=== PATIENT | female | born 1955 | race Caucasian/White ===

== ENCOUNTER → 2017-11-20 | Outpatient (CLI) | payer OTHER ==
--- NOTE | 2017-11-20 15:05 | US ---
LOWER EXTREMITY VENOUS INSUFFICIENCY SIDE PERFORMED: Right 1) Color flow is present and patency is documented in the following vessels. No DVT or SVT is noted . EIV Common Femoral Vein Deep Femoral Vein Femoral Vein Popliteal Vein Proximal Calf Veins Greater Saph Vein Upper Small Saph Vein 2) There is venous reflux noted at the following venous levels: none IMPRESSION: No evidence for venous reflux or DVT.
--- NOTE | 2017-11-25 10:31 | P.ARTDOP ---
Arterial Doppler LOWER EXTREMITY ARTERIAL DOPPLER: DATE OF SERVICE: 11/20/2017 Reason for study: Right foot ulcer. Doppler waveforms: Multiphasic bilaterally throughout. Pulse volume recording: Normal configuration. Pressure gradients: None. Ankle-brachial indices: Greater than 1 bilaterally. Toe pressures: 82on the right, 93 on the left Impression: Normal study.
== END | disposition home or self-care (01) ==
LOC: RADUSWWP 13:38
PROVIDERS: ATTEND Podiatrist
DX: M79.604 Pain in right leg (principal); M79.605 Pain in left leg; M86.8X8 Other osteomyelitis, other site
CPT/HCPCS: 93923

== ENCOUNTER → 2018-01-08 | Outpatient (CLI) | payer OTHER ==
--- NOTE | 2018-01-14 11:19 | MM ---
Reason for exam: screening (asymptomatic). Last mammogram was performed 7 years and 1 month ago. History: Patient is postmenopausal. Physical Findings: A clinical breast exam by your physician is recommended on an annual basis and results should be correlated with mammographic findings. MG Screening Mammo w CAD Bilateral CC and MLO view(s) were taken. Prior study comparison: December 13, 2010, mammogram, performed at [place]. The breast tissue is heterogeneously dense. This may lower the sensitivity of mammography. Previous mammotome biopsy in the right breast. Focal asymmetry left outer anterior aspect on CC view. ASSESSMENT: Incomplete: need additional imaging evaluation, BI-RAD 0 RECOMMENDATION: Special view mammogram of the left breast. If lesion persists on supplemental views, image directed ultrasound is recommended. [facility] will attempt to contact patient to return for supplemental views and ultrasound if indicated.
== END | disposition home or self-care (01) ==
LOC: RADMAMWWP 11:25
PROVIDERS: ATTEND Family Medicine
DX: Z12.31 Encounter for screening mammogram for malignant neoplasm of breast (principal)
CPT/HCPCS: 77067

== ENCOUNTER → 2018-02-16 | Outpatient (CLI) | payer OTHER ==
--- NOTE | 2018-02-16 11:02 | MM ---
Reason for exam: additional evaluation requested from abnormal screening. Last mammogram was performed 1 month ago. History: Patient is postmenopausal. Took estrogen for 2 years beginning at age 42. Physical Findings: Nurse did not find any significant physical abnormalities on exam. MG Work Up Mamm w CAD LT CC and MLO view(s) were taken of the left breast. Technologist: Binta Bernabe RT (R)(M) Prior study comparison: January 08, 2018, bilateral MG screening mammo w CAD. December 13, 2010, mammogram, performed at [place]. There are scattered fibroglandular densities. 9mm ovoid partially circumscribed, partially obscured focal asymmetry persists 2 o'clock left breast middle depth. These results were verbally communicated with the patient and result sheet given to the patient on 02/16/18. ASSESSMENT: Incomplete: need additional imaging evaluation, BI-RAD 0 RECOMMENDATION: Ultrasound of the left breast. (2 o'clock)
--- NOTE | 2018-02-16 11:04 | USB ---
Reason for exam: additional evaluation requested from abnormal screening. History: Patient is postmenopausal. Took estrogen for 2 years beginning at age 42. US Breast Workup Limited LT Left limited breast ultrasound including focal area of concern, retroareolar and axilla demonstrates a 7 x 3 x 6mm oval, cystic lesion at 2 o'clock, this likely corresponds to the mammographic finding. These results were verbally communicated with the patient and result sheet given to the patient on 02/16/18. ASSESSMENT: Probably benign, BI-RAD 3 RECOMMENDATION: Follow-up diagnostic mammogram of the left breast in 6 months.
== END | disposition home or self-care (01) ==
LOC: RADMAMWWP 09:49
PROVIDERS: ATTEND Family Medicine
DX: R92.8 Other abnormal and inconclusive findings on diagnostic imaging of breast (principal)
CPT/HCPCS: 77065

== ENCOUNTER 2018-02-24 06:55 | Day surgery (SDC) | payer OTHER ==
[2018-01-12 10:12] VITALS: BMI 29.5
[~2018-02-24 06:55] MED LIST: LACTATED RINGERS 1,000 ML IV SCH; LIDOCAINE 1% 20 ML VIAL (10MG/ML) FOR IV START INTRADERMA PRN
[2018-02-24 07:21] VITALS: TEMP 98.6
[2018-02-24] MEDS ORDERED: IV FLUID CONTINUATION 1,000 ML IV ONE (07:25)
[2018-02-24 07:31] LABS: Glucose,Whole Blood 232 mg/dL (75-99)
[2018-02-24] MEDS ORDERED: LIDOCAINE 1% INJ 10MG/ML (20 ML MDV) ONE (07:44)
[2018-02-24] MEDS ORDERED: PROPOFOL 10 MG/ML 20 ML VIAL IV ONE (07:44)
--- NOTE | 2018-02-24 08:34 | P.OP ---
Date of Procedure: 02/24/18 Preoperative Diagnosis: Diarrhea Postoperative Diagnosis: Diverticulosis Transverse colon polyp Procedure(s) Performed: Colonoscopy, forcep polypectomy Surgeon: Valeri Colby Pathology: other (Polypectomy of transverse colon) Condition: stable Disposition: same day Indications for Procedure: 62-year-old female results for colonoscopy. She has never had a colonoscopy previously. She complains of consistent diarrhea. Secondary to this, we will perform colonoscopy. The risks, benefits and alternatives were provided to the patient. The patient did provide consent prior to attending the operating suite. Operative Findings: Small transverse colon polyp Diverticulosis Description of Procedure: The patient was brought into the endoscopy suite. The patient was placed in the left lateral decubitus position and adequate sedation was achieved using conscious sedation. A digital rectal exam was performed and internal hemorrhoids were palpated. An endoscope was in place in the rectum and advanced to the cecum as identified by landmarks including the appendiceal orifice and the ileocecal valve. The prep was good. The colonoscope was then slowly withdrawn, examining for any mucosal abnormality. The cecum, ascending, transverse, descending and sigmoid colon were visualized adequately. There was one small polyp noted in the transverse colon. Forcep polypectomy was performed to remove this colon polyp. There was notable diverticulosis in the descending colon. There were no obvious inflammatory changes throughout the colon. There were no neoplastic lesions that were obvious. There was no obvious source of bleeding. Retroflexion was performed in the rectum and internal hemorrhoids were visible. Excess air was removed, the colonoscope was withdrawn and the procedure terminated. The patient was then transferred to the postanesthesia recovery unit in stable condition. Repeat colonoscopy should be performed in 5 years.
[2018-02-24 08:50] VITALS: BP 110/65; PULSE 96; RESP 16
[2018-02-24 09:04] LABS: Glucose,Whole Blood 232 mg/dL (75-99)
== END 2018-02-24 09:22 | disposition home or self-care (01) ==
LOC: ORWHC2ENDO 06:55
PROVIDERS: ATTEND Surgery
DX: D12.3 Benign neoplasm of transverse colon (principal); K57.30 Diverticulosis of large intestine without perforation or abscess without bleeding; K64.8 Other hemorrhoids; E11.40 Type 2 diabetes mellitus with diabetic neuropathy, unspecified; F32.9 Major depressive disorder, single episode, unspecified; K21.9 Gastro-esophageal reflux disease without esophagitis; M19.90 Unspecified osteoarthritis, unspecified site; I10 Essential (primary) hypertension; Z88.6 Allergy status to analgesic agent; Z87.891 Personal history of nicotine dependence; Z91.040 Latex allergy status; Z79.4 Long term (current) use of insulin; Z88.2 Allergy status to sulfonamides; Z79.899 Other long term (current) drug therapy
CPT/HCPCS: 88305; 45380; J2001; J2704